=== PATIENT | male | born 1995 | race African-American/Black ===

== ENCOUNTER 2023-11-02 12:43 | Outpatient (REF) | payer MEDICARE, BC, SELFPAY ==
[2023-11-02 13:54] LABS: Estimated Average Glucose 105 mg/dL; Hemoglobin A1c % 5.3 % (<6.0)
[2023-11-02 14:15] LABS: Cholesterol 174 mg/dL (<200); HDL Cholesterol 43 mg/dL (>40); LDL Cholesterol Calculated 111 mg/dL (<100); Triglycerides 103 mg/dL (<150)
== END 2023-11-02 12:44 | disposition home or self-care (01) ==
LOC: HO.LAB 12:43
PROVIDERS: PCP Internal Medicine; Visit Provider Registered Nurse
DX: F25.1 Schizoaffective disorder, depressive type (principal); F43.10 Post-traumatic stress disorder, unspecified; Z79.899 Other long term (current) drug therapy
CPT/HCPCS: 36415; 80061; 83036

== ENCOUNTER 2024-08-25 11:40 | Outpatient (REF) | payer OTHER, SELFPAY ==
[2024-08-25 12:51] LABS: Estimated Average Glucose 111 mg/dL; Hemoglobin A1c % 5.5 % (<6.0); Total Hemoglobin (HGBA1C) 3878.4341 umol/L
[2024-08-25 13:17] LABS: Cholesterol 158 mg/dL (<200); HDL Cholesterol 40 mg/dL (>40); LDL Cholesterol Calculated 95 mg/dL (<100); Triglycerides 119 mg/dL (<150)
--- OUTSIDE RECORDS SUMMARY | 2024-08-25 14:08 | XMS_ITS | Continuity of Care Document ---
Author Organization [address] [place] [address]- Care Team Providers Care Metal Caster Name Role Phone Francisco Kc MD Primary Care Physician [phone] Encounter [facility] Date(s): 07/01/24 - 07/31/[address] [place], [place] [address] Attending Physician: Guzman Whittaker Admitting Physician: Guzman Whittaker Referring Physician: Admtr, [id number] Encounter Type: Triage Allergies, Adverse Reactions, Alerts Substance Criticality Severity Reaction Reaction Severity Status Seasonale Active Immunizations Given and Recorded Vaccine Date Status Refusal Reason Poliovirus Vaccine, Inactivated 04/29/00 Given Poliovirus Vaccine, Inactivated 07/12/96 Given Poliovirus Vaccine, Inactivated 05/01/96 Given Poliovirus Vaccine, Inactivated 01/16/96 Given Diphth/Pertussis,Acel/Tetanus (oldterm) 04/29/00 G iven Diphth/Pertussis,Acel/Tetanus (oldterm) 01/12/97 G iven Diphth/Pertussis,Acel/Tetanus (oldterm) 07/12/96 G iven Diphth/Pertussis,Acel/Tetanus (oldterm) 05/01/96 G iven Diphth/Pertussis,Acel/Tetanus (oldterm) 01/16/96 G iven Hepatitis B Vaccine (old term) 05/10/96 Given Hepatitis B Vaccine (old term) 01/16/96 Given Hepatitis B Vaccine (old term) 95 Given Medications Albuterol 0 Refills, Maintenance, 05/04/13 1:56:20 PM EDT Start Date: 05/04/13 Status: Ordered Repeat number: 1 escitalopram 5 mg oral tablet 1 tablet = 5 mg, By Mouth, Daily in AM, Maintenance, 05/24/24 9:07:00 AM EDT, Tablet, Partial fill upon patient request if the prescription is for a schedule II opioid drug. Start Date: 05/24/24 Status: Ordered Repeat number: 1 melatonin 3 mg oral tablet 1 tablet = 3 mg, By Mouth, Daily at bedtime, PRN for insomnia, Maintenance, 05/24/24 9:08:00 AM EDT, Tablet, Partial fill upon patient request if the prescription is for a schedule II opioid drug. Start Date: 05/24/24 Status: Ordered Repeat number: 1 Multivitamin By Mouth, Daily, 0 Refills, Maintenance, 05/04/13 1:56:37 PM EDT Start Date: 05/04/13 Status: Ordered Repeat number: 1 Outpatient OT Outpatient OT, See Instructions, # 1 each, Refills 0, Tot. Refills 0, Maintenance, Outpatient OT, 07/01/24 2:22:00 PM EST, Supply Start Date: 07/01/24 Status: Ordered Quantity: 1.0 Unit: each Repeat number: 1 prazosin 2 mg oral capsule 1 capsule = 2 mg, By Mouth, 3 times a day, # 42 capsule, 0 Refills, Maintenance, 07/01/24 2:19:00 PM EST, [id number], Partial fill upon patient request if the prescription is for a schedule II opioid drug., 180, cm, 07/01/24 13:53:00 EST, Height, 90, kg, 05/24/24 13:36:00 EDT, Dry Weight Start Date: 07/01/24 Stop Date: 07/15/24 Status: Ordered Quantity: 42.0 Unit: capsule Repeat number: 1 risperiDONE 1 mg oral tablet 1 mg, 1, tablet, By Mouth, 2 times a day, Maintenance, 05/24/24 9:07:00 AM EDT, Partial fill upon patient request if the prescription is for a schedule II opioid drug. Start Date: 05/24/24 Status: Ordered Repeat number: 1 Problem List Condition Confirmation Course Effective Dates Status Health St atus Informant Generalized anxiety disorder Confirmed Active Social History Social History Type Response Smoking Status Never smoker entered on: 10/14/13 Sex Sex Representation Male (finding) Patient Care team information Care Team Personnel Name: Francisco Kc MD Position: Reference Physician Member Role: PCP Address: [address] [place] [address] [facility] [place], [place] [address] Telecom: Care Team Related Persons Name: CRISTEL MESA Name: SARAH MESA Insurance Providers Guarantor name: SEAN Health Plan Information #: 1 Payer: [facility] Member Number: NA Policy Number: SEAN Group Number: NA
--- OUTSIDE RECORDS SUMMARY | 2024-08-25 14:08 | XMS_ITS | Continuity of Care Document ---
Author Organization [address] [place] [address]- Care Team Providers Care Catering Driver Name Role Phone De MENDEZ, Francisco Oliver Primary Care Physician Encounter [facility] Date(s): 07/29/24 - 08/05/[address] [place], [place] [address] Attending Physician: Víctor Andrade Encounter Type: Office Visit Allergies, Adverse Reactions, Alerts Substance Criticality Severity [...] 0 Refills, Maintenance, 07/01/24 2:19:00 PM EST, [facility], Partial fill upon patient request if the [...] atus Informant Generalized anxiety disorder Confirmed Active Vital Signs Most recent to oldest [Reference Range]: 1 Height 180 cm (07/29/24 1:12 PM) Pulse Rate [55-90 bpm] 72 bpm (07/29/24 1:12 PM) Blood Pressure [90-138/55-84 mm Hg] 104/ 70mm Hg (07/29/24 1:12 PM) Temperature [96.8-100.4 DegF] 97.2 DegF (07/29/24 1:12 PM) Blood pressure sites Arm, left (07/29/24 1:12 PM) Temperature Route Temporal (07/29/24 1:12 PM) Social History Social History Type Response Smoking Status Never smoker entered on: 10/14/13 Sex Sex Representation Male (finding) Patient Care team information Care Team Personnel Name: Francisco Kc MD Position: Reference Physician Member Role: PCP Address: [address] [place] [address] Medical [place], [place] [address] Telecom: Care Team Related Persons Name: CRISTEL MESA Name: SARAH MESA Insurance Providers Guarantor name: SEAN Health Plan Information #: 1 Payer: [facility] Member Number: [id number] Policy Number: NA Group Number: SEAN Health Plan Information #: 2 Payer: [facility] ALLIANCE/[facility] Member Number: [id number] Policy Number: SEAN Group Number: SEAN
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
--- OUTSIDE RECORDS SUMMARY | 2024-08-25 14:09 | XMS_ITS | Encounter Summary ---
Author Organization [facility] Address [address] [place] [address] Care Team Providers Care Sanitation Truck Driver Name Role Phone Francisco Kc MD Primary Care Provider [phone] Reason for Visit * Reason Comments med review Encounter Details Date Type Department Care Team ([facility] Contact Info) Description 08/16/2024 11:30 AM EST Office Visit Adult Medicine [address] [phone] Francisco Kc MD [address] [place] [phone] Mild persistent asthma without complication (Primary Dx); Gastroesophageal reflux disease without esophagitis; Schizophrenia, unspecified type ([facility]) Social History Tobacco Use Types Packs/Day Years [...] on file documented as of this encounter Last Filed Vital Signs Vital Sign Reading Time Taken Comments Blood Pressure 110/78 08/16/2024 11:22 AM EST Pulse 80 08/16/2024 11:22 AM EST Temperature 36.3 ??C (97.4 ??F) 08/16/2024 11:[address] Respiratory Rate 16 08/16/2024 11:22 AM EST Oxygen Saturation - - Inhaled Oxygen Concentration - - Weight 88 kg (194 lb) 08/16/2024 11:22 AM EST Height 185.4 cm (6' 1 ) 08/16/2024 11:22 AM EST Body Mass Index 25.6 08/16/2024 11:22 AM EST documented in this encounter Ordered Prescriptions Prescription Sig Dispensed Refills Start Date End Da te omeprazole (PriLOSEC) [address] capsule Take 1 capsule (40 mg total) by mouth 1 (one) time each day. 90 capsule 1 08/16/2024 fluticasone HFA (FLOVENT HFA) 110 mcg/actuation inhaler Inhale 2 puffs by mouth 2 (two) times a day. 1 each 5 08/16/2024 albuterol HFA (PROAIR HFA ; PROVENTIL HFA ; VENTOLIN HFA) 90 mcg/actuation inhaler Inhale 2 puffs by mouth every 4 (four) hours if needed for wheezing. 6.7 g 3 08/16/2024 documented in this encounter Progress Notes * Francisco Kc MD - 08/16/2024 11:30 AM EST CHIEF COMPLAINT: med review IDENTIFIER: Chivo Ac is a 28 y.o. old male. HPI: 28-year-old male patient with past medical history of asthma, GERD, schizophrenia, insomnia who is seen here for med review follow-up exam. Asthma symptoms are under control and he is using Flovent as well as albuterol MDI as needed. He is on omeprazole for GERD symptoms and symptoms are under control. He follows with a psychiatrist for schizophrenia. He also reported that he is taking some sleepmedication for insomnia. He works as a [employer] ROS: GENERAL: No malaise, significant weight loss or fever HEENT: No changes in hearing or vision, nose bleeds or other nasal problems NECK: No lumps RESPIRATORY: No cough, wheezing or shortness of breath CARDIOVASCULAR: No chest pain, or palpitations GI: No abdominal pain, hematochezia, melena : No dysuria, oliguria, polyuria, hematuria, flank pain MUSCULOSKELETAL: No joint pain or swelling, back pain, or muscle pain. SKIN: No lesions, rash or itching NEURO: No persistent headache, syncope, seizures, weakness or numbness PAST MEDICAL HISTORY: Patient Active Problem List Diagnosis Date Noted Bipolar affective ([facility]) 06/21/2024 Schizophrenia ([facility]) 06/21/2024 Sleep disturbance 02/17/2017 Learning difficulty 09/30/2012 Allergic rhinitis due to allergen 04/12/2007 Mild intermittent asthma 06/24/2006 Past Surgical History: Procedure Laterality Date OTHER SURGICAL HISTORY PROCEDURE: DENIES PREVIOUS SURGERY SOCIAL HISTORY: Social History Tobacco Use Smoking status: Never Smokeless tobacco: Never Substance Use Topics Alcohol use: Yes FAMILY HISTORY: Family History Problem Relation Name Age of Onset Other (Other: epilepsy) Mother age 26yr Colon cancer Other MGGM Diabetes Other MGaunt, muncle Other (Other: ADHD) Other cousin No Known Problems Father Other (Other: Diabetes, hypertension, afib, hypertension) Maternal Grandmother Other (Other: blood disorder) Maternal Grandfather Family Status Relation Name Status Mother at age 26 seizure disorder Other (Not Specified) Other (Not Specified) Other (Not Specified) Father Alive MGM (Not Specified) MGF (Not Specified) No partnership data on file MEDICATIONS DISCONTINUED/REORDERED: Medications Discontinued During This Encounter Medication Reason cyclobenzaprine (FLEXERIL) 10 mg tablet ibuprofen (ADVIL,MOTRIN) 600 mg tablet omeprazole (PriLOSEC) [address] capsule Reorder fluticasone HFA (FLOVENT HFA) 110 mcg/actuation inhaler Reorder albuterol HFA (PROAIR HFA ; PROVENTIL HFA ; VENTOLIN HFA) 90 mcg/actuation inhaler Reorder ACTIVE MEDICATIONS: Outpatient Medications Marked as Taking for the 08/16/24 encounter (Office Visit) with Francisco Kc MD Medication Sig Dispense Refill albuterol HFA (PROAIR HFA ; PROVENTIL HFA ; VENTOLIN HFA) 90 mcg/actuation inhaler Inhale 2 puffs by mouth every 4 (four) hours if needed for wheezing. 6.7 g 3 fluticasone HFA (FLOVENT HFA) 110 mcg/actuation inhaler Inhale 2 puffs by mouth 2 (two) times a day. 1 each 5 omeprazole (PriLOSEC) [address] capsule Take 1 capsule (40 mg total) by mouth 1 (one) time each day.90 capsule 1 risperiDONE (RisperDAL) 0.5 mg tablet Take 1 tablet (0.5 mg total) by mouth 2 (two) times a day. [DISCONTINUED] albuterol HFA (PROAIR HFA ; PROVENTIL HFA ; VENTOLIN HFA) 90 mcg/actuation inhaler Inhale 2 puffs by mouth. [DISCONTINUED] cyclobenzaprine (FLEXERIL) 10 mg tablet Take 1 tablet (10 mg total) by mouth at bedtime as needed for muscle spasms. 30 tablet 0 [DISCONTINUED] fluticasone HFA (FLOVENT HFA) 110 mcg/actuation inhaler Inhale 2 puffs by mouth. [DISCONTINUED] ibuprofen (ADVIL,MOTRIN) 600 mg tablet Take 1 tablet (600 mg total) by mouth 3 (three) times a day if needed for mild pain or moderate pain (pain). 60 tablet 1 [DISCONTINUED] omeprazole (PriLOSEC) [address] capsule Take 1 capsule (40 mg total) by mouth 1 (one)time each day. ALLERGIES: Allergies Allergen Reactions Avocado Anaphylaxis PHYSICAL EXAM: Visit Vitals BP 110/78 Pulse 80 Temp 36.3 ??C (97.4 ??F) (Temporal) Resp 16 Ht 1.854 m (73 ) Wt 88 kg (194 lb) BMI 25.60 kg/m?? Smoking Status Never BSA 2.12 m?? Physical Exam APPEARANCE: Alert and in no acute distress EYES: PERRLA, conjunctiva and sclera normal. EARS: External ears normal. NOSE/SINUS: Nares normal. MOUTH/THROAT: no erythema or exudates HEART: RRR with normal S1 and S2, no murmurs LUNG: clear to auscultation, no wheezing ABDOMEN: Bowel sounds normoactive, soft, non-tender and no palpable masses. BACK: No pain to palpation EXTREMITIES: No edema NEURO: Awake, alert and oriented x 3. No focal neurological deficits SKIN: No rashes LABS: @CBC@ No results found for: NA , K , CL , CO2 , GLUCOSE , BUN , CREATININE , CALCIUM , PROT , ALBUMIN , BILITOT , AST , ALT , URICACID , PHOS , MG , ALKPHOS , CKTOTAL , EGFR No results found for: HGBA1C No results found for: TSH Lab Results Component Value Date CHOL 137 11/12/2022 TRIG 96 11/12/2022 HDL 38 (A) 11/12/2022 LDL 80 11/12/2022 IMAGING: No recent imaging IMPRESSION: 1. Mild persistent asthma without complication 2. Gastroesophageal reflux disease without esophagitis 3. Schizophrenia, unspecified type ([facility]) PLAN: 1. Asthma symptoms are under control, no wheezing. Continue Flovent MDI 2 puffs twice a day and albuterol MDI 2 puff every 4 hourly as needed. 2. GERD symptoms are under control, continue Meprazole 40 mg daily 3. He follows with a psychiatrist for schizophrenia and insomnia. He is on risperidone and some other sleep medication. 4. Follow-up exam in 7 months for physical exam All questions and concerns were addressed. Chivo Ac verbalizes understanding and agrees with this treatment plan. Patient was reminded to call or return to the office if any new or existing problems arise. No orders of the defined types were placed in this encounter. None Francisco Kc MD on 08/16/2024 at 11:58 AM EST Today's documentation was made using voice recognition software.This note may contain grammatical errors secondary to this software. documented in this encounter Plan of Treatment Upcoming Encounters Date Type Department Care Team (Late st Contact Info) Description 08/26/2024 7:30 AM EST Treatment Outpatient [address] [phone] Mike Buckley, PT [address] [place] [address] 03/16/2025 8:30 AM EDT Office Visit Adult Medicine [address] [phone] Francisco Kc MD [address] [place] [address] documented as of this encounter Goals Goal Patient Goal Type Associated Problems Recent Progress Patient-Stated? Author No pain General Yes Mike Buckley, PT STG 8 visits from General No [...] x 18 visits from General No Mike Buckley, PT Note: Pt will be able to [...] as of this encounter Visit Diagnoses Diagnosis Mild persistent asthma without complication- Primary Gastroesophageal reflux disease without esophagitis Esophageal reflux Schizophrenia, unspecified type ([facility]) documented in this encounter Discontinued Medications Medication Sig Discontinue Reason Start Date End Da te cyclobenzaprine (FLEXERIL) 10 mg tablet Take 1 tablet (10 mg total) by mouth at bedtime as needed for muscle spasms. 06/21/2024 08/16/2024 ibuprofen (ADVIL,MOTRIN) 600 mg tablet Take 1 tablet (600 mg total) by mouth 3 (three) times a day if needed for mild pain or moderate pain (pain). 06/21/2024 08/16/2024 omeprazole (PriLOSEC) [address] capsule Take 1 capsule (40 mg total) by mouth 1 (one) time each day. Reorder 11/04/2023 08/16/2024 fluticasone HFA (FLOVENT HFA) 110 mcg/actuation inhaler Inhale 2 puffs by mouth. Reorder 12/16/2022 08/16/2024 albuterol HFA (PROAIR HFA ; PROVENTIL HFA ; VENTOLIN HFA) 90 mcg/actuation inhaler Inhale 2 puffs by mouth. Reorder 12/16/2022 08/16/2024 documented as of this encounter Care Teams Sanitation Truck Driver Relationship Specialty Start Date End Date Francisco Kc MD [address] [place] [address] PCP - General Internal Medicine 02/20/22 documented as of this encounter
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
== END 2024-08-25 11:41 | disposition home or self-care (01) ==
LOC: HO.LAB 11:40
PROVIDERS: PCP Internal Medicine; Visit Provider Registered Nurse
DX: Z79.899 Other long term (current) drug therapy (principal)
CPT/HCPCS: 36415; 80061; 83036